=== PATIENT | female | born 2000 | race Caucasian/White ===

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

== ENCOUNTER → 2018-01-18 | Outpatient (CLI) | payer OTHER ==
--- NOTE | 2018-01-18 09:05 | MR ---
EXAMINATION TYPE: MR tspine/lspine wo con DATE OF EXAM: 01/18/2018 COMPARISON: Previous MRI of the lumbar spine dated 07/13/2013. HISTORY: Disc degeneration, lumbar/thoracic TECHNIQUE: Multiplanar, multisequence imaging of the lumbar spine is performed without IV contrast. FINDINGS: THORACIC SPINE: Paraspinal soft tissues are normal. Vertebral body height and alignment are maintained. No fractures are seen. There is no significant co mpressive discopathy. Intervertebral foramina are well maintained. IMPRESSION: NORMAL MRI OF THE THORACIC SPINE. LUMBAR SPINE: Paraspinal soft tissues are normal. 2 body height and alignment are maintained. There is no spondylolisthesis or spondylolysis. Cord signal is normal. The conus ends normally at the level of the L1-2 disc.. There is no significant compressive discopathy. Intervertebral foramina are well maintained. There is mild capsulitis in the facets at L4-5 and mild hypertrophic changes in the facets at L5-S1. IMPRESSION: 1. NO SIGNIFICANT COMPRESSIVE DISCOPATHY OR NEURAL COMPRESSION. 2. MILD FACET ARTHROPATHY, L4-5 AND L5-S1.
== END | disposition home or self-care (01) ==
LOC: RADMRIMAIN 07:42
PROVIDERS: ATTEND Family Medicine
DX: M46.87 Other specified inflammatory spondylopathies, lumbosacral region (principal)
CPT/HCPCS: 72146; 72148

== ENCOUNTER → 2018-03-28 | Outpatient (CLI) | payer OTHER ==
--- NOTE | 2018-03-29 11:04 | MR ---
EXAMINATION TYPE: MR wrist RT wo con DATE OF EXAM: 03/28/2018 COMPARISON: NONE HISTORY: D23.60 Benign neoplasm, skin of arm / Pain Standard multiplanar, multisequence MRI departmental protocol Multiplanar, multisequence images of the right wrist were acquired. Diffusion weighted imaging was pe rformed. FINDINGS: Osseous structures are homogeneous with normal bone marrow signal. No evidence for fracture or osseou s lesion. Adjacent to the distal radius at the palmar aspect are 2 small ganglion cysts measuring up to 4.1 mm and 1.2 mm respectively. No additional soft tissue lesions are identified. Triangular fibrocartilage complex is homogeneous and intact. Metacarpal Intraosseous ligaments are intact. Tendinous structures appear to be intact as well. IMPRESSION: 1. Ganglion cysts as noted.
== END | disposition home or self-care (01) ==
LOC: RADMRIMAIN 19:34
PROVIDERS: ATTEND Family Medicine
DX: M67.431 Ganglion, right wrist (principal); D23.60 Other benign neoplasm of skin of unspecified upper limb, including shoulder; M25.531 Pain in right wrist

== ENCOUNTER → 2018-06-13 | Outpatient (CLI) | payer OTHER ==
--- NOTE | 2018-06-13 23:12 | MR ---
EXAMINATION TYPE: MR knee LT wo con DATE OF EXAM: 06/13/2018 COMPARISON: None HISTORY: Ck knee pain x 3 months TECHNIQUE: Multiplanar, multisequence imaging of the left knee is performed without IV contrast. FINDINGS: The anterior and posterior cruciate ligaments are intact. There is small knee joint effusion. The med ial and lateral menisci appear normal. The collateral ligaments appear intact. There is subcutaneous edema over the lateral collateral ligament. There is no evidence of a fracture. I see no bony destruc tive process. Patella is intact. IMPRESSION: No evidence of meniscus or ligamentous tear. Small knee joint effusion. Subcutaneous edema over the lateral left knee.
--- NOTE | 2018-06-13 23:19 | MR ---
EXAMINATION TYPE: MR knee RT wo con DATE OF EXAM: 06/13/2018 COMPARISON: None HISTORY: Ck knee pain x 3 months TECHNIQUE: Multiplanar, multisequence imaging of the right knee is performed without IV contrast. FINDINGS: The anterior and posterior cruciate ligaments are intact. The medial and lateral menisci appear svetlana l. There is no evidence of meniscal tear. There is minute joint fluid. The collateral ligaments are i ntact. There is no evidence of a fracture. I see no bony destructive process. Patella appears intact. There is very minimal soft tissue edema lateral to the lateral collateral ligament. There is 7 mm po pliteal cyst. IMPRESSION: No evidence of ligament or meniscus tear. Small popliteal cyst. Minimal edema lateral to the lateral collateral ligament.
== END | disposition home or self-care (01) ==
LOC: RADMRIMAIN 17:50
PROVIDERS: ATTEND Family Medicine
DX: M71.21 Synovial cyst of popliteal space [Baker], right knee (principal); M25.462 Effusion, left knee; R60.0 Localized edema

== ENCOUNTER → 2018-07-22 | Outpatient (CLI) | payer OTHER ==
[2018-07-22 11:37] VITALS: BP 128/88; PULSE 78; RESP 16; TEMP 99.1; BMI 20.1
--- NOTE | 2018-07-22 12:37 | P.HPOB ---
History of Present Illness H&P Date: 07/22/18 Chief Complaint: Patients here for her routine gynecologic exam and for control. This is a 18-year-old with an LMP of 07/14/2018. She was previously on Xulane patches for control. She was supposed to start this again last week but her prescription ran out. She previously took control pills but frequently would forget the pills, therefore, she has been using the patch. She is without gynecologic complaints. Review of Systems The patient's weight has been stable over the last year. She denies respiratory , cardiac, or G.I. problems. 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 She has had to vaginal deliveries. History of Any Multi-Drug Resistant Organisms: None Reported Past Surgical History: No Surgical Hx Reported Past Anesthesia/Blood Transfusion Reactions: No Reported Reaction Past Psychological History: No Psychological Hx Reported Smoking Status: Never smoker Past Alcohol Use History: None Reported Past Drug Use History: None Reported Additional History: She is single but has been with her boyfriend since 2014 and lives with him. She does not work outside the home. - Past Family History Mother Family Medical History: Hypertension Additional Family Medical History / Comment(s): Grandmother had hypertension. Medications and Allergies Home Medications Medication Instructions Recorded Confirmed Type No Known Home Medications 08/16/16 07/22/18 History Allergies Allergy/AdvReac Type Severity Reaction Status Date / Time No Known Allergies Allergy Verified 12/03/17 04:49 Exam Vital Signs Temp Pulse Resp BP 07/22/18 11:31 99.1 F 78 16 128/88 Intake and Output 07/21/18 07/22/18 07/22/18 22:59 06:59 14:59 Other: Weight 54.885 kg Height 5'5", BMI 20.1. This is a well-developed well-nourished white female who is alert and oriented times 3 in no acute distress. HEENT: Within normal limits. NECK: Supple without mass or thyromegaly. CHEST AND LUNGS: Clear to auscultation. HEART: Regular rate and rhythm. BREASTS: Are without mass or discharge. AXILLARY EXAM: Negative for adenopathy. BACK: Negative for CVA tenderness. ABDOMEN: Soft, nontender, without palpable masses. PELVIC EXAM: Normal external genitalia. Cervix and vagina appear normal. There is no unusual discharge. There is no evidence of prolapse. The uterus is midposition, nongravid size and nontender. There are no palpable adnexal masses or tenderness. RECTAL EXAM: deferred EXTREMITIES: Nontender. IMPRESSION: 1. 26 year old female with normal gynecologic exam. 2. Requesting to be restarted on Xulane patches for control. Her prescription ran out last week. PLAN: 1. Pap smear will be deferred until age 19. 2. Self breast awareness was discussed with the patient. 3. GC and Chlamydia screening were obtained from the cervix. 4. We have had a long discussion regarding control and side effects related to hormonal control. We also discussed the possible risks including increased risk for blood clots. I feel she is a good candidate to restart her control patch. The prescription for Xulane patches will be sent electronically to [facility] in [place]. She is to start this on the 1st day of her next normal menstrual period. She will use it as directed. I have recommended the use of condoms or abstinence until she has restarted the control patch. 5. Return in one year and PRN.
== END | disposition home or self-care (01) ==
LOC: WWCWWP 10:46
PROVIDERS: ATTEND Obstetrics & Gynecology
DX: Z11.3 Encounter for screening for infections with a predominantly sexual mode of transmission (principal)
CPT/HCPCS: 87491; 87591

== ENCOUNTER → 2019-07-22 | Outpatient (CLI) | payer OTHER ==
[2019-07-22 10:03] VITALS: BP 120/80; PULSE 64; RESP 16; TEMP 98.5; BMI 18.8
--- NOTE | 2019-07-22 10:52 | P.HPOB ---
History of Present Illness H&P Date: 07/22/19 Chief Complaint: The patient is here for her routine well woman exam and for control. This is a 19 year old with an LMP of 07/21/2019. The patient is without gynecologic complaints. She states she has been doing very well with the Xulane patches for control. She is interested in permanent tubal sterilization. She states she is certain she is done having children. Review of Systems The patient has lost 7 pounds over the last year. She denies respiratory, cardiac, or G.I. problems. 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 She has had two vaginal deliveries. History of Any Multi-Drug Resistant Organisms: None Reported Past Surgical History: No Surgical Hx Reported Past Anesthesia/Blood Transfusion Reactions: No Reported Reaction Past Psychological History: No Psychological Hx Reported Smoking Status: Never smoker Past Alcohol Use History: None Reported Past Drug Use History: None Reported Additional History: She is single and has been with her boyfriend since 2014. She lives with him. 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 - Past Family History Mother Family Medical History: Hypertension Additional Family Medical History / Comment(s): Grandmother had hypertension. Medications and Allergies Home Medications Medication Instructions Recorded Confirmed Type Norelgestromin/Ethin.estradiol 1 patch TRANSDERM WEEKLY #9 patch 07/22/18 07/22/19 Rx [Xulane Patch] Allergies Allergy/AdvReac Type Severity Reaction Status Date / Time No Known Allergies Allergy Verified 07/22/19 10:04 Exam Vital Signs Temp Pulse Resp BP Pulse Ox 07/22/19 10:00 98.5 F 64 16 120/80 100 Intake and Output 07/21/19 07/22/19 07/22/19 22:59 06:59 14:59 Other: Weight 51.256 kg Height 5'5", weight 113 pounds, BMI 18.8. This is a well-developed well-nourished white female who is alert and oriented times 3 in no acute distress. HEENT: Within normal limits. NECK: Supple without mass or thyromegaly. CHEST AND LUNGS: Clear to auscultation. HEART: Regular rate and rhythm. BREASTS: Are without mass or discharge. AXILLARY EXAM: Negative for adenopathy. BACK: Negative for CVA tenderness. ABDOMEN: Soft, nontender, without palpable masses. PELVIC EXAM: deferred due to menstrual flow. The patient would like to return for the pelvic exam at a later date. EXTREMITIES: Nontender. IMPRESSION: 1. 19 year old female doing well on Xulane patches for control. 2. The patient is currently on her menstrual period. The pelvic examination was deferred for this reason. 3. Undesired fertility. The patient is requesting tubal sterilization. PLAN: 1. The patient will return for her pelvic examination with Pap smear and GC and Chlamydia testing on 08/04/2019. 2. Self breast awareness was discussed with the patient. 3. We had a long discussion regarding options for control including long- acting reversible contraception and tubal sterilization. We also discussed how the risk for sterilization regrets is greater prior to age 30. Information on tubal sterilization and long-acting reversible contraception such as IUD and the implant was given to the patient. These were given as the ACOG FAQ 035 and FAQ 184. When she returns for her pelvic examination we will again discussed this and consider referral to Dr. Grant, who delivered her 1st child, for possible tubal sterilization. 4. Continue on the control patch at this time. The prescription for the upcoming months will be sent to [facility] in [place]. When she returns for her pelvic examination, a prescription will be sent in for the rest of the year. 5. She will return on 08/04/2019 and then annually.
== END | disposition home or self-care (01) ==
LOC: WWCWWP 09:54
PROVIDERS: ATTEND Obstetrics & Gynecology
DX: Z53.9 Procedure and treatment not carried out, unspecified reason (principal)

== ENCOUNTER → 2019-08-04 | Outpatient (CLI) | payer OTHER ==
[2019-08-04 09:02] VITALS: BP 118/74; PULSE 67; RESP 16; TEMP 98.7; BMI 18.8
--- NOTE | 2019-08-04 09:42 | P.PN ---
Progress Note - Text Progress Note Date: 08/04/19 Chief Complaint: intermittent pelvic cramping over the last year. HPI:This is a 19-year-old with an LMP of 07/22/2019. The patient is complaining of intermittent pelvic cramping that can occur any time. She states she has noticed this over the past 1 to 2 years after her 2nd child. She does have worsening cramping after sexual intercourse. However, she states the cramping can occur any time and is frequently not associated with sexual intercourse or menstrual periods. It can last up to an hour when she experiences the cramping. It is not on any particular side. She was checked for a urinary tract infection by her primary care doctor and this was negative for the patient. She had the cramping yesterday and rated it at a 2 out of 10. At its worst, it can be up to 4 or 5 out of 10. Currently the patient is at 0 out of 10. She has had less sexual desire and thinks it may be in part due to the cramping. She has also returned here today to complete her pelvic examination which was not done at the time of her well woman exam on 07/22/2019 because of her menstrual flow at that time. ROS: she denies respiratory, cardiac, or G.I. problems. PE: Blood pressure: 119/74, Height: 5'5", Weight: 113 pounds, Temperature: 98.7, Pulse: 67. Pulse oximeter 94%. This is a well developed, well nourished, white female who is alert and orientedx3, in no acute distress. Abdomen: soft nontender without palpable masses. Pelvic examination: normal external genitalia. Cervix appears multiparous without lesions. Vagina appears normal without unusual discharge. The cervix is slightly friable upon doing the Pap smear. There is no cervical motion tenderness. The uterus is an introverted, nongravid size, and nontender. There are no palpable adnexal masses or tenderness. Rectal examination was deferred. Impression: 1. 19-year-old female with intermittent pelvic cramping without any significant physical findings at this time. Differential diagnosis will include ovarian cyst, uterine cramping possibly related to prostaglandins and her partner's semen, G.I. cramping, mild pelvic infection, and bladder spasms. 2. Dyspareunia consisting of cramping associated with sexual intercourse. Plan: 1. Pap smear was performed. 2. GC and Chlamydia testing was obtained from the cervix. 3. The patient will be scheduled for a pelvic ultrasound. The orders that was given to the patient for this. 4. Continue Xulane -control patches. The electronic prescription will be sent to [facility] in [place]. 5. We have discussed other options for control including the IUD and tubal sterilization, which she had previously requested. She states she has not read the information on these methods of control yet. 6. She will try to determine if her cramping is associated with any particular activity or condition. 7. She will also return in one year for her annual exam and PRN. Time spent with the patient: 20 minutes
[2019-08-06 07:22] LABS: C. trachomatis,PCR Negative (Neg,Equiv); Chlamydia trachomatis Source Cervix; N. gonorrhoeae,PCR Negative (Neg,Equiv); Neisseria Source Cervix
== END | disposition home or self-care (01) ==
LOC: WWCWWP 08:50
PROVIDERS: ATTEND Obstetrics & Gynecology
DX: N94.10 Unspecified dyspareunia (principal); R10.2 Pelvic and perineal pain; Z11.3 Encounter for screening for infections with a predominantly sexual mode of transmission
CPT/HCPCS: 87491; 87591

== ENCOUNTER → 2019-08-14 | Outpatient (CLI) | payer OTHER ==
--- NOTE | 2019-08-15 10:15 | US ---
EXAMINATION TYPE: US pelvis complete transvag DATE OF EXAM: 08/14/2019 COMPARISON: NONE CLINICAL HISTORY: R10.2 PELVIC PAIN,N94.1 DYSPAREUNIA. Pt states cramping during intercourse TECHNIQUE: Transvaginal (TV) and Transabdominal (TA) . Transabdominal sonographic images of the pel vis were acquired. Transvaginal sonographic images were medically necessary to better assess the fol lowing anatomy: Left Ovary Date of LMP: 07/22/2020 EXAM MEASUREMENTS: Uterus: 8.6 x 4.3 x 5.5 cm Endometrial Stripe: 0.5 cm Right Ovary: 2.3 x 1.7 x 2.7 cm Left Ovary: 2.5 x 1.9 x 1.8 cm 1. Uterus: Anteverted wnl 2. Endometrium: wnl 3. Right Ovary: wnl 4. Left Ovary: wnl 5. Bilateral Adnexa: wnl 6. Posterior cul-de-sac: wnl IMPRESSION: Unremarkable study.
== END | disposition home or self-care (01) ==
LOC: RADUSWWP 16:07
PROVIDERS: ATTEND Obstetrics & Gynecology
DX: N94.10 Unspecified dyspareunia (principal); R10.2 Pelvic and perineal pain
CPT/HCPCS: 76830; 76856

== ENCOUNTER → 2019-10-26 | Outpatient (CLI) | payer OTHER ==
[2019-10-26 10:19] LABS: Basophils % (A) 1 %; Eosinophils # (A) 0.1 k/uL (0-0.7); Eosinophils % (A) 2 %; HCT 40.4 % (34.0-46.0); HGB 14.1 gm/dL (11.4-16.0); Lymphocytes # (A) 1.8 k/uL (1.0-4.8); Lymphocytes % (A) 39 %; MCH 28.3 pg (25.0-35.0); MCHC 34.8 g/dL (31.0-37.0); MCV 81.3 fL (80.0-100.0); Mean Platelet Volume 5.5; Monocytes # (A) 0.4 k/uL (0-1.0); Monocytes % (A) 8 %; Neutrophils # (A) 2.2 k/uL (1.3-7.7); Neutrophils % (A) 49 %; Platelet Count 292 k/uL (150-450); RBC 4.97 m/uL (3.80-5.40); RDW 13.2 % (11.5-15.5); WBC 4.5 k/uL (3.8-10.6)
== END | disposition home or self-care (01) ==
LOC: LABPAT 08:57
PROVIDERS: ATTEND Obstetrics & Gynecology
DX: Z01.812 Encounter for preprocedural laboratory examination (principal); N94.6 Dysmenorrhea, unspecified; N94.10 Unspecified dyspareunia
CPT/HCPCS: 36415; 85025

== ENCOUNTER 2019-11-09 08:44 | Day surgery (SDC) | payer OTHER ==
[2019-11-05 12:29] VITALS: BMI 18.1
[~2019-11-09 08:44] MED LIST: DEXAMETHASONE SOD PHOSPHATE 10 MG/ML 1 ML VIAL IV ONE; HYDROmorphone 0.5 MG/0.5 ML SYRINGE IVP PRN; LACTATED RINGERS 1,000 ML IV SCH; LIDOCAINE 1% 20 ML VIAL (10MG/ML) FOR IV START INTRADERMA PRN; ONDANSETRON 4 MG/2 ML VIAL IVP ONE; Pre Op ABX Message 1 EACH MISC MISCELLANE ONE; SCOPOLAMINE 1.5MG/72HR PATCH TRANSDERM ONE
[2019-11-09] MEDS ORDERED: ROCURONIUM BROMIDE 10 MG/ML 10 ML VIAL IV ONE (10:14)
[2019-11-09] MEDS ORDERED: SUCCINYLCHOLINE CHLORIDE 100 MG/5 ML SYR IV ONE (10:14)
[2019-11-09] MEDS ORDERED: MIDAZOLAM 2 MG/2 ML VIAL ONE (10:14)
[2019-11-09] MEDS ORDERED: NEOSTIGMINE 1 MG/ML 10 ML VIAL ONE (10:14)
[2019-11-09] MEDS ORDERED: KETOROLAC 30 MG/ML 1 ML VIAL ONE (10:14)
[2019-11-09] MEDS ORDERED: fentaNYL (PF) 50 MCG/ML 2 ML AMP ONE (10:14)
[2019-11-09] MEDS ORDERED: PROPOFOL 10 MG/ML 20 ML VIAL IV ONE (10:14)
[2019-11-09] MEDS ORDERED: GLYCOPYRROLATE 0.2 MG/ML 2 ML VIAL ONE (10:14)
[2019-11-09] MEDS ORDERED: LIDOCAINE 1% INJ 10MG/ML (20 ML MDV) ONE (10:14)
[2019-11-09] MEDS ORDERED: BUPIVACAINE (PF) 0.25% 30 ML VIAL SQ ONE ×2 (10:47→10:55)
[2019-11-09] MEDS ORDERED: LACTATED RINGERS 1,000 ML IV ONE ×3 (10:47)
--- NOTE | 2019-11-09 11:05 | P.OP ---
Date of Procedure: 11/09/19 Preoperative Diagnosis: Dysmenorrhea, dyspareunia. Postoperative Diagnosis: Essentially normal-appearing female pelvis Procedure(s) Performed: Diagnostic laparoscopy Anesthesia: WALLY Surgeon: Alivia Grant Estimated Blood Loss (ml): 5 IV fluids (ml): 800 Urine output (ml): 200 Pathology: none sent Condition: stable Disposition: PACU Operative Findings: Normal-appearing tubes, ovaries, anterior posterior cul-de-sacs, bilateral si dewalls, uterine surface, appendix. Description of Procedure: Patient is brought to the operating suite where a general anesthetic is administered. She's placed in the dorsal lithotomy position. The appropriate timeout is performed to assure proper patient and procedural identification. Urine hCG is negative. Antibiotics are not deemed appropriate. The cervix, vagina, perineal bodies and abdomen are all prepped and draped in usual sterile fashion. The bladder is drained for 200 mL of clear yellow urine. Examination under anesthesia reveals a small, mobile, anteverted uterus, negative adnexa bilaterally. Speculum was placed into the vagina and the anterior lip of the cervix is grasped with an Allis clamp. The small acorn is placed and attached to the Allis, blood speculum is removed. Attention is then drawn to the abdominal cavity. A small infraumbilical incision is made. The varies needle is placed and placement is checked with hanging drop technique. The abdomen is insufflated under low filling pressures for approximately 3.5 L of CO2 gas. Pressures remaining below 14 mmHg. Varies needle is removed. The trochar is placed under direct visualization. Placement is atraumatic. Patient is then placed in Trendelenburg position. A second incision is made suprapubically in the midline, and a 5 mm trocar is placed again under direct visualization, atraumatic entry. A probe is placed in the suprapubic port. Careful inspection of the uterine surface, bilateral sidewalls, bilateral tubes to the fimbriated end, and ovaries is performed. The anterior posterior cul-de-sacs are also visualized, as is the appendix to its tip. There is no evidence of pelvic adhesions, no evidence of pelvic endometriosis, no abnormal findings on careful inspection. When this is completed, the CO2 gas was allowed to diffuse and the trochars are again removed under direct visualization for documentation of atraumatic fascial entries. 4-0 undyed Monocryl is used in a subcutaneous fashion to close both small incisions. They are dressed after being injected with quarter percent Marcaine without epinephrine. Toradol is given prior to leaving the operative suite. All sponge needle and enhancement counts are correct at the end of our procedure. Patient is brought back to the recovery room in very good condition with stable vital signs including blood pressure 124/72, pulse 69, 100% O2 saturation. Patient will follow-up with me in the office in 2 weeks.
[2019-11-09 11:09] VITALS: TEMP 96.9
[2019-11-09 11:52] VITALS: RESP 16
[2019-11-09 12:45] VITALS: BP 122/79; PULSE 54
== END 2019-11-09 12:43 | disposition home or self-care (01) ==
LOC: OR 08:44
PROVIDERS: ATTEND Obstetrics & Gynecology
DX: N94.10 Unspecified dyspareunia (principal); N94.6 Dysmenorrhea, unspecified; F41.9 Anxiety disorder, unspecified; J45.909 Unspecified asthma, uncomplicated; F32.9 Major depressive disorder, single episode, unspecified; Z83.3 Family history of diabetes mellitus; Z83.42 Family history of familial hypercholesterolemia; Z79.899 Other long term (current) drug therapy; Z79.3 Long term (current) use of hormonal contraceptives
CPT/HCPCS: 81025; 49320; J2250; J1100; J2710; J2405; J2001; J3010; J1885; J0330; J2704

== ENCOUNTER 2020-10-31 05:55 | Inpatient (IN) | payer OTHER ==
[2020-10-31] MEDS ORDERED: METHYLERGONOVINE 0.2 MG/ML 1 ML AMP IM PRN (06:12)
[2020-10-31] MEDS ORDERED: CARBOPROST TROMETHAMINE 250 MCG/ML 1 ML AMP IM PRN (06:12)
[2020-10-31] MEDS ORDERED: OXYTOCIN 10 UNIT/ML 1 ML VIAL IM PRN (06:12)
[2020-10-31] MEDS ORDERED: TERBUTALINE 1 MG/ML VIAL SQ PRN (06:12)
[2020-10-31] MEDS ORDERED: LIDOCAINE 0.5% (PF) 5 MG/ML (50 ML SDV) SQ PRN (06:12)
[2020-10-31] MEDS ORDERED: PENICILLIN G POTASSIUM 5,000,000 UNIT in DEXTROSE 5% IN WATER 100 ML IVPB STA ×2 (06:12)
[2020-10-31] MEDS ORDERED: OXYTOCIN 30 UNITS/500 ML NS 30 UNIT in SALINE 1 500ML.BAG IV SCH (06:15)
[2020-10-31 06:26] LABS: Basophils # (A) 0.1 k/uL (0-0.2); Basophils % (A) 1 %; Eosinophils # (A) 0.1 k/uL (0-0.7); Eosinophils % (A) 1 %; HCT 33.6 % (34.0-46.0); HGB 11.1 gm/dL (11.4-16.0); Hypochromasia Moderate; Lymphocytes # (A) 1.9 k/uL (1.0-4.8); Lymphocytes % (A) 25 %; MCH 22.6 pg (25.0-35.0); MCHC 32.9 g/dL (31.0-37.0); MCV 68.6 fL (80.0-100.0); Mean Platelet Volume 6.7; Microcytosis Moderate; Monocytes # (A) 0.4 k/uL (0-1.0); Monocytes % (A) 6 %; Neutrophils % (A) 66 %; Platelet Count 239 k/uL (150-450); Poikilocytosis Moderate; RBC 4.89 m/uL (3.80-5.40); RDW 14.2 % (11.5-15.5); WBC 7.6 k/uL (3.8-10.6)
[2020-10-31] MEDS: LACTATED RINGERS 1,000 ML IV SCH ×2 (07:05→15:31)
--- NOTE | 2020-10-31 08:40 | P.HPOB ---
History of Present Illness H&P Date: 10/31/20 Chief Complaint: Here for elective induction of labor with favorable multiparous cervix This is a 20-year-old white female 3 para 2002 EDC 11/07/2020 at 39 weeks gestation. Patient presents today for induction. She has spontaneous mild contractions upon admission. She denies fluid leakage or vaginal bleeding. Obstetric history significant for positive group B strep cultures. Blood type O positive, rubella status immune. Urine culture, hepatitis B surface antigen, HIV testing, gonorrhea and chlamydia cultures all negative. One-hour Glucola 136. VDRL testing negative TPA. Past medical history significant for asthma, anxiety and depression, dyspareunia, dysmenorrhea. Past surgical history diagnostic laparoscopy 2019, wisdom teeth extracted. ALLERGIES none known. Family history significant for hypertension diabetes and mental impairment. Social history patient is single, father of the baby is involved. She denies alcohol tobacco or drug use. On exam patient is 5 foot 4 inches, 125 pounds, blood pressure 118/63. The general physical exam is normal limits. Cervix is 6 cm dilated, 80% effaced, -1 station, vertex presentation. Artificial amniorrhexis reveals clear fluid with vernix. heart rate is in the 140s with frequent accelerations consistent with reactive NST. Impression: 39 week intrauterine , here for elective induction of labor, in early spontaneous labor, all signs reassuring, positive group B strep cultures noted. Plan: Penicillin G per hospital protocol. Oxytocin as needed. Analgesic options reviewed with the patient. Continue close maternal and surveillance. Anticipate normal spontaneous vaginal delivery. Review of Systems Constitutional: Reports as per HPI Past Medical History Past Medical History: Asthma Additional Past Medical History / Comment(s): PAST LAY MIDWIFE HISTORY: She has no h istory of STDs. She has had two vaginal deliveries. History of Any Multi-Drug Resistant Organisms: None Reported Past Surgical History: No Surgical Hx Reported Additional Past Surgical History / Comment(s): Laparoscopy Past Anesthesia/Blood Transfusion Reactions: No Reported Reaction Past Psychological History: No Psychological Hx Reported Smoking Status: Never smoker Past Alcohol Use History: None Reported Past Drug Use History: None Reported - Past Family History Mother Family Medical History: Hypertension Additional Family Medical History / Comment(s): Grandmother had hypertension. Medications and Allergies Home Medications Medication Instructions Recorded Confirmed Type No Known Home Medications 10/31/20 10/31/20 History Allergies Allergy/AdvReac Type Severity Reaction Status Date / Time No Known Allergies Allergy Verified 10/31/20 06:12 Exam Vital Signs Temp Pulse Resp BP Pulse Ox 10/31/20 06:11 97.3 F L 66 16 118/63 100 Intake and Output 10/30/20 10/31/20 10/31/20 22:59 06:59 14:59 Other: Weight 56.699 kg See dictation under HPI please Results Result Diagrams: 10/31/20 06:20 Abnormal Lab Results - Last 24 Hours (Table) 10/31/20 Range/Units 06:20 Hgb 11.1 L (11.4-16.0) gm/dL Hct 33.6 L (34.0-46.0) % MCV 68.6 L (80.0-100.0) fL MCH 22.6 L (25.0-35.0) pg Assessment and Plan Assessment: 39 week intrauterine , early spontaneous labor. Positive group B strep cultures, first dose of penicillin G received. Plan: Continue close maternal and surveillance. Analgesic options reviewed with the patient. Anticipate normal spontaneous vaginal delivery. Time with Patient: Less than 30
[2020-10-31] MEDS ORDERED: diphenhydrAMINE 50 MG CAP PO PRN (09:42)
[2020-10-31] MEDS ORDERED: HYDROCORTISONE 2.5% RECTAL CREAM 30 GM TUBE RECTAL PRN (09:42)
[2020-10-31] MEDS ORDERED: ACETAMINOPHEN TAB 325 MG TAB PO PRN (09:42)
[2020-10-31] MEDS ORDERED: diphenhydrAMINE 25 MG CAP PO PRN (09:42)
[2020-10-31] MEDS ORDERED: diphenhydrAMINE 50 MG/ML 1 ML VIAL IVP PRN ×2 (09:42)
[2020-10-31] MEDS ORDERED: SIMETHICONE 80 MG CHEWABLE PO PRN (09:42)
[2020-10-31] MEDS ORDERED: ZOLPIDEM 5 MG TAB PO PRN (09:42)
[2020-10-31] MEDS ORDERED: IBUPROFEN 600 MG TAB PO PRN (09:42)
[2020-10-31] MEDS ORDERED: LANOLIN CREAM 5 GM TUBE TOPICAL PRN (09:42)
[2020-10-31] MEDS ORDERED: BENZOCAINE/MENTHOL SPRAY 1 GM/SPRAY AEROSOL TOPICAL PRN (09:42)
--- NOTE | 2020-10-31 09:42 | P.PROBDLV ---
Vaginal Delivery Note - . Vaginal Delivery Note: This is a 20-year-old white female 3 para 2001 EDC 11/07/2020 at 39 weeks gestation. Patient was scheduled for induction with favorable cervix, on admission she was having spontaneous uterine contractions. remarkable for rubella status nonimmune, positive group B strep cultures, blood type O positive. Please see dictated history and physical for details. Artificial amniorrhexis revealed clear fluid. Analgesic options were discussed and declined. Patient rapidly progressed to the first stage of labor was judged to be completely dilated at 0936 hours. The perineal body was prepped and draped in usual sterile fashion. With excellent maternal expulsive efforts the head delivered occiput anterior and restituted accordingly. There was a nuchal cord 2 that was reduced on the perineal body. Patient was officially delivered of a liveborn female infant at 0939 hours. Umbilical cord was doubly clamped and ligated, she was handed to waiting nurses for evaluation where scores of 9 and 9 at one and 5 minutes respectively were given. Placenta delivered spontaneously was inspected and noted to be intact with trivascular cord at 0944 hours. This time the perineal body was redraped. Inspection of the cervix, vagina, perineum, periurethral, and perirectal areas revealed no lacerations and no defects. Fundus is firm and in the midline, symmetric and 18 week size completion of delivery. All sponge needle and enhancement counts are correct. Patient is allowed to begin the bonding experience in the LDR.
[2020-10-31] MEDS ORDERED: OXYTOCIN 20 UNITS/1000 ML NS 1,000 ML IV SCH (09:45)
[2020-10-31] MEDS ORDERED: PENICILLIN G POTASSIUM 2,500,000 UNIT in DEXTROSE 5% IN WATER 100 ML IVPB SCH ×2 (11:00)
[2020-10-31] MEDS ORDERED: SENNOSIDES-DOCUSATE SODIUM 1 EACH TAB PO SCH (20:00)
[2020-11-01 06:43] LABS: Basophils % (A) 0 %; Eosinophils # (A) 0.1 k/uL (0-0.7); Eosinophils % (A) 1 %; HCT 31.6 % (34.0-46.0); HGB 9.9 gm/dL (11.4-16.0); Hypochromasia Marked; Lymphocytes # (A) 1.9 k/uL (1.0-4.8); Lymphocytes % (A) 22 %; MCH 21.7 pg (25.0-35.0); MCHC 31.2 g/dL (31.0-37.0); MCV 69.5 fL (80.0-100.0); Mean Platelet Volume 6.7; Microcytosis Moderate; Monocytes # (A) 0.4 k/uL (0-1.0); Monocytes % (A) 5 %; Neutrophils # (A) 6.2 k/uL (1.3-7.7); Neutrophils % (A) 71 %; Platelet Count 238 k/uL (150-450); Poikilocytosis Moderate; RBC 4.54 m/uL (3.80-5.40); RDW 14.1 % (11.5-15.5); WBC 8.8 k/uL (3.8-10.6)
--- NOTE | 2020-11-01 06:48 | P.DS ---
Providers Date of admission: 10/31/20 05:55 Expected date of discharge: 11/01/20 Attending physician: Alivia Grant Primary care physician: Stated None Hospital Course: This is a 20-year-old white female 3 para 2001 EDC 11/07/2039 weeks gestation. Patient presented for induction with favorable multiparous cervix. remarkable for rubella status nonimmune. Blood type O positive. [place] strep cultures positive. Please see dictated history and physical for details. Artificial amniorrhexis revealed clear fluid. Patient went on to swiftly deliver vaginally a liveborn female with scores of 9 and 9 at one and 5 minutes respectively. weighed 2965 g or 6 pounds 8.6 ounces. There was a nuchal cord 2 that was reduced, estimated blood loss 250 mL, no perineal lacerations. Please see dictated delivery note for details. This morning the patient is doing well. She is voiding, ambulate in, passing flatus without difficulty. Vital signs are stable and she is afebrile. Fundus is firm and in the midline, symmetric and 18 week size. Extremities are negative for edema. Chest is clear in all paredes. Patient is judged to be in very good condition for discharge home. She will follow-up with me in the office in 6 weeks. I have reminded her no intercourse, tampons or douching. She will use [id number] Advil or Aleve, or Motrin as needed for pain. She is to call with any fevers shakes or chills, foul smelling or copious lochia, with the passage of large blood clots, with any pain not alleviated by [id number] products, or indeed with any concerns. Assessment: Doing well day #1 Patient Condition at Discharge: Good Plan - Discharge Summary Discharge Rx Participant: No New Discharge Prescriptions: No Action No Known Home Medications Discharge Medication List No Known Home Medications 10/31/20 [History] Follow up Appointment(s)/Referral(s): Alivia Grant MD [STAFF PHYSICIAN] - 6 Weeks Discharge Disposition: HOME SELF-CARE
[2020-11-01 10:45] VITALS: PULSE 60; RESP 15
[2020-11-01 17:07] VITALS: BP 101/58; TEMP 98
== END 2020-11-01 16:45 | disposition home or self-care (01) | DRG 807 ==
LOC: 4FBP 05:55
PROVIDERS: ADMIT Obstetrics & Gynecology; ATTEND Obstetrics & Gynecology
DX: O69.81X0 Labor and delivery complicated by cord around neck, without compression, not applicable or unspecified (principal); O99.824 Streptococcus B carrier state complicating childbirth; Z37.0 Single live birth; Z3A.39 39 weeks gestation of pregnancy; Z87.09 Personal history of other diseases of the respiratory system; Z86.59 Personal history of other mental and behavioral disorders; Z82.49 Family history of ischemic heart disease and other diseases of the circulatory system; Z83.3 Family history of diabetes mellitus; Z81.8 Family history of other mental and behavioral disorders
CPT/HCPCS: 85025; 86850; 86870; 86880; 86886; 86900; 86901

== ENCOUNTER → 2021-01-12 | Outpatient (CLI) | payer OTHER ==
[2021-01-12 12:39] LABS: Anisocytosis Slight; Basophils % (A) 1 %; Eosinophils % (A) 1 %; HCT 41.3 % (34.0-46.0); HGB 13.2 gm/dL (11.4-16.0); Hypochromasia Slight; Lymphocytes # (A) 2.7 k/uL (1.0-4.8); Lymphocytes % (A) 44 %; MCH 23.5 pg (25.0-35.0); MCHC 31.9 g/dL (31.0-37.0); MCV 73.8 fL (80.0-100.0); Mean Platelet Volume 6.7; Microcytosis Moderate; Monocytes # (A) 0.5 k/uL (0-1.0); Monocytes % (A) 8 %; Neutrophils # (A) 2.8 k/uL (1.3-7.7); Neutrophils % (A) 45 %; Platelet Count 229 k/uL (150-450); Poikilocytosis Slight; RBC 5.59 m/uL (3.80-5.40); RDW 18.4 % (11.5-15.5); WBC 6.2 k/uL (3.8-10.6)
== END | disposition home or self-care (01) ==
LOC: LABPAT 11:48
PROVIDERS: ATTEND Obstetrics & Gynecology
DX: Z01.818 Encounter for other preprocedural examination (principal)
CPT/HCPCS: 36415; 85025

== ENCOUNTER 2021-01-16 08:39 | Day surgery (SDC) | payer OTHER ==
[2021-01-11 13:08] VITALS: BMI 18.4
--- NOTE | 2021-01-12 14:45 | HP ---
HISTORY AND PHYSICAL PREOPERATIVE HISTORY AND PHYSICAL DATE OF SURGERY: 01/16/2021 This is a 20-year-old white female, 3, para 3-0-0-3 who presents again for permanent tubal sterilization utilizing Filshie clips. She too is aware of all of the other options of contraception, including vasectomy. She understands the low but possible failure rate of this procedure, including the risk of intrauterine versus ectopic . PAST MEDICAL HISTORY: Significant for anxiety and depression, asthma, dysmenorrhea and dyspareunia. PAST SURGICAL HISTORY: Diagnostic laparoscopy 2019, wisdom teeth extracted in the past. CURRENT MEDICATIONS: Rectal cream as needed for hemorrhoid use. ALLERGIES: None known. FAMILY HISTORY: Significant for hypertension, diabetes, hypercholesterolemia and mental impairment. REPRODUCTIVE HISTORY: Normal spontaneous vaginal deliveries x3, healthy infants. SOCIAL HISTORY: Patient denies alcohol, illicit substance abuse or any drug use. She is single. 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 PHYSICAL EXAMINATION: The patient is 5 feet 4 inches, 110 pounds, pulse 67, blood pressure 110/72. HEENT exam reveals good dentition, no obvious thyromegaly, no adenopathy. Chest is clear to auscultation in all paredes anteriorly and posteriorly. Cardiac exam reveals a regular rate and rhythm with no murmur, click, or rub. Abdomen is soft, nontender, active bowel sounds, no organosplenomegaly. Breasts are bilaterally symmetrical with no skin dimpling, discharge, or adenopathy. External genitalia are well estrogenized, cervix is multiparous and a PAP smear is up to date. Uterus is small, anteverted, anteflexed, mobile, smooth, and nontender. Adnexa are negative bilaterally with no tenderness or masses. Rectal exam reveals FIT negative stool, good sphincter tone, no defects or hemorrhoids. Neurologic exam: Patient is oriented x3, normal mood and affect. IMPRESSION: The patient requesting permanent tubal sterilization utilizing Filshie clips, aware of all other options of contraception and aware of failure rate. PLAN: We will proceed with laparoscopic tubal ligation with Filshie clips. We reviewed the risks of anesthesia to include aspiration, nerve damage, or even . We reviewed the risk of bleeding, infection, perforation or damage to bowel, bladder, ureters, blood vessels or indeed any pelvic or abdominal organs. All questions answered. MMODL / IJN: [id number] /
[~2021-01-16 08:39] MED LIST changes: -DEXAMETHASONE SOD PHOSPHATE 10 MG/ML 1 ML VIAL IV ONE; +DEXAMETHASONE SOD PHOSPHATE 4 MG/ML 1 ML VIAL IV ONE; -HYDROmorphone 0.5 MG/0.5 ML SYRINGE IVP PRN; +LIDOCAINE 1% (10MG/ML) FOR IV START INTRADERMA PRN; -LIDOCAINE 1% 20 ML VIAL (10MG/ML) FOR IV START INTRADERMA PRN
[2021-01-16] MEDS ORDERED: LACTATED RINGERS 1,000 ML IV ONE ×2 (08:51)
[2021-01-16] MEDS ORDERED: SUCCINYLCHOLINE CHLORIDE 100 MG/5 ML SYR IV ONE (10:57)
[2021-01-16] MEDS ORDERED: MIDAZOLAM 2 MG/2 ML VIAL ONE (10:57)
[2021-01-16] MEDS ORDERED: KETOROLAC 15 MG/ML 1 ML VIAL ONE (10:57)
[2021-01-16] MEDS ORDERED: PROPOFOL 10 MG/ML 20 ML VIAL IV ONE (10:57)
[2021-01-16] MEDS ORDERED: LIDOCAINE 1% INJ 10MG/ML (20 ML MDV) ONE (10:57)
[2021-01-16] MEDS ORDERED: fentaNYL (PF) 50 MCG/ML 2 ML AMP ONE (10:57)
[2021-01-16] MEDS ORDERED: BUPIVACAINE (PF) 0.25% 30 ML VIAL SQ ONE ×2 (11:21→11:28)
[2021-01-16] MEDS ORDERED: SILVER NITRATE APPLICATOR 1 EACH STICK..EA. TOPICAL ONE (11:32)
--- NOTE | 2021-01-16 11:54 | P.OP ---
Date of Procedure: 01/16/21 Preoperative Diagnosis: Undesired fertility Postoperative Diagnosis: Same, normal-appearing female pelvis Procedure(s) Performed: Laparoscopic tubal ligation with Filshie clips Surgeon: Alivia Grant Estimated Blood Loss (ml): 25 IV fluids (ml): 600 Urine output (ml): 200 Pathology: none sent Condition: stable Disposition: PACU Operative Findings: Normal-appearing tubes and ovaries, uterus, sidewalls, and pelvis. Description of Procedure: Patient is brought to the [facility] and suite where general anesthetic is administered. She's placed in the dorsal lithotomy position. The cervix, vagina, perineum, and abdomen are all prepped and draped in usual sterile fashion. The appropriate timeout is performed to assure proper patient and procedural identification. Urine hCG is negative. The speculum was placed into the vagina and the anterior lip of the cervix is grasped with a double-tooth tenaculum. [place] cannula is placed onto the cervix and attached to the tenaculum. Speculum is removed. Attention is now drawn to the abdomen. A small infraumbilical incision is made and carried down through the previous scar. The perineal needle is placed and the placement is checked with hanging drop technique. Abdomen is distended and insufflated to a total of 2.5 L of CO2 gas. Veress needle was removed. Trochars placed and placement is noted to be atraumatic. A second incision is made suprapubically and under direct vi sualization the second trocar is placed. Patient is now put in Trendelenburg position. The right fallopian tube is visualized in its entirety to the fimbriated end. A Filshie clip is placed in the isthmic portion of the tube with care to traverse the entire diameter of the tube into the mesal salpinx. The same procedure is carried out contralaterally, again the fimbriated end of the tube is visualized for proper placement and clip is placed through the entire isthmic portion of the tube into the mesal salpinx. During the course of the procedure the case became hypotensive, this was managed by the anesthesia team with atropine. Please see separate notes. Bilateral ovaries appear normal. Uterine serosa is clear. Pelvic sidewalls are negative, no evidence of endometriosis or adhesions. The CO2 gas was allowed to diffuse. The trochars are removed and the fascial defects are inspected and noted to be clean and dry. 4-0 undyed Monocryl is used for final skin closure. Steri-Strips and Mastisol are applied to the wounds. Instrumentation is removed from the cervix, nitrous stick's are used on a small defect from the tenaculum with excellent hemostasis. All sponge needle and enhancement counts are correct at the end of the procedure. Patient is brought back to the recovery room in very good condition with stable vital signs including a blood pressure of 132/59, pulse 103, 100% O2 saturation. Toradol is given prior to leaving the operative suite. Patient will follow-up with me in the office in 2 weeks.
[2021-01-16 11:55] VITALS: TEMP 97.9
[2021-01-16 12:03] VITALS: RESP 16
[2021-01-16] MEDS: HYDROmorphone 0.5 MG/0.5 ML SYRINGE IVP PRN ×2 (12:05→12:17)
[2021-01-16] MEDS ORDERED: HYDROcodone/APAP 5-325MG 1 EACH TAB ONE (12:53)
[2021-01-16] MEDS ORDERED: HYDROcodone/APAP 5-325MG 1 EACH TAB PO ONE (12:57)
[2021-01-16 13:11] VITALS: BP 118/74; PULSE 90
== END 2021-01-16 13:30 | disposition home or self-care (01) ==
LOC: OR 08:39
PROVIDERS: ATTEND Obstetrics & Gynecology
DX: Z30.2 Encounter for sterilization (principal); F41.9 Anxiety disorder, unspecified; F32.9 Major depressive disorder, single episode, unspecified; J45.909 Unspecified asthma, uncomplicated; N94.6 Dysmenorrhea, unspecified; N94.10 Unspecified dyspareunia; Z98.890 Other specified postprocedural states; K64.9 Unspecified hemorrhoids; Z81.1 Family history of alcohol abuse and dependence; Z83.3 Family history of diabetes mellitus; Z83.42 Family history of familial hypercholesterolemia; Z81.8 Family history of other mental and behavioral disorders
CPT/HCPCS: 81025; 58671; J2250; J1100; J2405; J2001; J3010; J1885; J0330; J2704; J1170

== ENCOUNTER → 2022-05-30 | Outpatient (CLI) | payer OTHER ==
--- NOTE | 2022-05-31 06:36 | FL ---
EXAMINATION TYPE: FL hysterosalpingography DATE OF EXAM: 05/30/2022 CLINICAL HISTORY: History of tubal ligation procedure last year with possible displaced clip. Recent abnormal x-ray. TECHNIQUE: Fluoroscopic assisted hysterosalpingogram. COMPARISON: None. FINDINGS: Fluoroscopic guidance was provided during hysterosalpingogram procedure performed by linnea jacobo A total of 1 minute 48 seconds of fluoroscopic time was utilized during the procedure and 8 spot images are acquired. Procedure was explained to the patient. Benefits, alternatives, and risks were discussed. An informed consent was then obtained. Preprocedure bar supervisor image shows 2 right pelvic tubal ligation clips. Incidental note made of transitio nal vertebra lumbosacral junction. Pelvic exam was performed using sterile technique as the speculum was inserted. The cervical os is cl eansed with Betadine. Catheter is inserted and balloon is inflated. Approximately 10 cc of Isovue-370 is injected into the uterus. There is some flow bilaterally along the tubes with left tube filling l ater and being mildly dilated. Opacified portion of right tube is longer in length. There is no free spillage of contrast in the pelvis bilaterally to suggest persistent tube patency. At this point ball oon is deflated and catheter is withdrawn. Speculum was removed. Patient tolerated procedure well without any immediate complication. Patient discharged home from the department in stable and satisfactory condition. IMPRESSION: As Above.
== END | disposition home or self-care (01) ==
LOC: RADUSWWP 13:11
PROVIDERS: ATTEND Obstetrics & Gynecology
DX: Z98.51 Tubal ligation status (principal)
CPT/HCPCS: 58340; 74740; Q9967

== ENCOUNTER → 2025-04-30 | Outpatient (CLI) | payer OTHER ==
[2025-04-30 15:16] LABS: Basophils # (A) 0.04 X 10*3/uL (0.00-0.10); Basophils % (A) 0.8 %; Eosinophils # (A) 0.07 X 10*3/uL (0.04-0.35); Eosinophils % (A) 1.4 %; HCT 42.4 % (37.2-46.3); Lymphocytes # (A) 1.77 X 10*3/uL (0.90-5.00); Lymphocytes % (A) 35.8 %; MCH 28.5 pg (27.0-32.0); MCV 86.2 FL (80.0-97.0); Mean Platelet Volume 9.3 FL (9.5-12.2); Monocytes # (A) 0.47 X 10*3/uL (0.20-1.00); Monocytes % (A) 9.5 %; NRBC Per 100 WBC 0 X 10*3/uL (0.00-0.01); Neutrophils # (A) 2.54 X 10*3/uL (1.80-7.70); Neutrophils % (A) 51.5 %; Platelet Count 227 X 10*3/uL (140-440); RBC 4.92 X 10*6/uL (4.10-5.20); RDW 12.3 % (11.5-14.5); WBC 4.94 X 10*3/uL (4.50-10.00)
[2025-04-30 15:40] LABS: ALT 51 U/L (8-44); AST 40 U/L (13-35); Albumin 4.2 g/dL (3.8-4.9); Albumin/Globulin Ratio 2.62 Ratio (1.60-3.17); Alkaline Phosphatase 34 U/L (41-126); Blood Urea Nitrogen 9.3 mg/dL (9.0-27.0); Calcium 9.4 mg/dL (8.7-10.3); Carbon Dioxide 26.3 mmol/L (21.6-31.8); Chloride 104 mmol/L (96-109); Globulin 1.6 g/dL (1.6-3.3); Glucose 94 mg/dL (70-110); Potassium 4.7 mmol/L (3.5-5.5); Sodium 141 mmol/L (135-145); Total Bilirubin 0.4 mg/dL (0.3-1.2); Total Protein 5.8 g/dL (6.2-8.2)
== END | disposition home or self-care (01) ==
LOC: LABPAT 09:41
PROVIDERS: ATTEND Obstetrics & Gynecology
DX: Z01.812 Encounter for preprocedural laboratory examination (principal); N93.9 Abnormal uterine and vaginal bleeding, unspecified
CPT/HCPCS: 80053; 85025; 86850; 86900; 86901; 87086

== ENCOUNTER 2025-05-06 05:47 | Day surgery (SDC) | payer OTHER ==
[2025-05-06] MEDS: LACTATED RINGERS 1,000 ML IV ONE ×2 (06:35→08:28)
[2025-05-06] MEDS ORDERED: LIDOCAINE 1% (10MG/ML) FOR IV START INTRADERMA PRN (06:52)
[2025-05-06] MEDS: SCOPOLAMINE 1 MG/72 HR PATCH TRANSDERM ONE ×2 (06:58→11:11)
[2025-05-06] MEDS: DEXAMETHASONE SOD PHOSPHATE 4 MG/ML 1 ML VIAL IVP ONE (06:59)
[2025-05-06] MEDS ORDERED: fentaNYL (PF) 50 MCG/ML 2 ML AMP ONE (07:28)
[2025-05-06] MEDS ORDERED: GLYCOPYRROLATE 0.2 MG/ML 2 ML VIAL ONE (07:28)
[2025-05-06] MEDS ORDERED: ROCURONIUM 10 MG/ML (5 ML VIAL) IV ONE (07:28)
[2025-05-06] MEDS ORDERED: LIDOCAINE 1% INJ 10MG/ML (20 ML MDV) ONE (07:28)
[2025-05-06] MEDS ORDERED: NEOSTIGMINE 1 MG/ML 10 ML VIAL ONE (07:28)
[2025-05-06] MEDS ORDERED: MIDAZOLAM 2 MG/2 ML VIAL ONE (07:28)
[2025-05-06] MEDS ORDERED: KETOROLAC 15 MG/ML 1 ML VIAL ONE (07:28)
[2025-05-06] MEDS ORDERED: SUCCINYLCHOLINE CHLORIDE 200 MG/10 ML VIAL IV ONE (07:28)
[2025-05-06] MEDS ORDERED: PROPOFOL 10 MG/ML 20 ML VIAL IV ONE (07:28)
[2025-05-06] MEDS: ceFAZolin 2 GM in DEXTROSE 5% IN WATER 50 ML IVPB PRN (07:33)
[2025-05-06] MEDS: VASOPRESSIN 20 UNIT/ML 1 ML VIAL SQ ONE (08:01)
[2025-05-06] MEDS: ESTRADIOL 0.1 MG/GM VAGINAL CREAM 42.5 GM TUBE VAGINAL ONE (08:02)
[2025-05-06] MEDS: HYDROmorphone 0.5 MG/0.5 ML SYRINGE IVP PRN (09:07)
[2025-05-06] MEDS ORDERED: SIMETHICONE 80 MG CHEWABLE PO PRN (09:08)
--- NOTE | 2025-05-06 09:16 | P.OP ---
Date of Procedure: 05/06/25 Preoperative Diagnosis: 1. Abnormal uterine bleeding 2. Dysmenorrhea Postoperative Diagnosis: Same Procedure(s) Performed: Total Vaginal Hysterectomy Implants: None Anesthesia: WALLY Surgeon: Kia Matute Cardiac Nurse Practitioner #1: Genna Wilcox Estimated Blood Loss (ml): 150 Urine output (ml): 150 (clear yellow) Pathology: other (cervix, uterus) Condition: stable Disposition: floor Indications for Procedure: Ms. House is 24 year old with AUB and dysmenorrhea. She has tried multiple forms of contraception and TXA without any improvement in her symptoms. She presents for definitive management with Total Vaginal Hysterectomy. Risks, benefits, and alternatives to surgery are discussed including bleeding, infection, damage to surrounding structures including bladder/bowel/ureters, and post-operative VTE. The patient understands these risks and desire to proceed with surgery as discussed. Operative Findings: Bulky appearing uterus, fallopian tubes surgically absent. Ovaries normal- appearing. Description of Procedure: Prior to the beginning of the procedure the team paused to verify the patient's identity, as well as the procedure to be performed and the correct side/site. All equipment required was ready and available. The patient was positioned appropriately. Patient was cleaned and draped and legs were placed in lithotomy position using Jose stirrups. Kendrick catheter was placed to drain the bladder. A weighted speculum was placed in the posterior vaginal vault. The cervix was grasped with a double-tooth tenaculum. Vasopressin was injected circumstantially around the cervix. With downward traction, a circumferential incision was made along the vaginal mucosa overlying the reflection. This allowed dissection and entrance into the posterior cul-de-sac. An 0-Vicryl suture was placed to tag the posterior peritoneum. At this time, the uterosacral ligaments were visualized. These were clamped and ligated with 0-Vicryl suture. The uterosacral ligaments were held bilaterally. The cervicovesical space was then created by both blunt and sharp dissection allowing the cardinal ligaments to be visualized. These were clamped and ligated with 0-Vicryl suture as well. Once in the cervicovesical space the uterosacral-cardinal ligament complex was completely ligated with 0-Vicryl suture. The uterine arteries were clamped and ligated with 0-Vicryl suture. The gauri clamps were moved sequentially upward on the uterus until a small adnexal pedicle remained. The anterior cul-de-sac was now entered bluntly. The uterus was inverted and the pedicles were cut. The uterine specimen was delivered and sent for pathology. Bilateral fallopian tubes were grapsed, ligated with a ehcnlg-oc-scflb stitch, and cut. Bilateral uteroovarian ligaments were doubly ligated first with a transfixing 0-Vicryl suture and then reinforced with a free 0-Vicryl tie in the usual fashion. The large weighted speculum was removed and replaced with the small weighted speculum. A modified Rosas Culdoplasty was performed with the uterosacral ligaments held by pieces of 0- Vicryl. The vaginal cuff inferior and superior to the level of the Rosas Culd oplasty was closed with 0-Vicryl suture in a running fashion. After completion of the case, a kendrick catheter was inserted and noted to move freely into the urethra without tension. Clear urine was noted to drain from the catheter. Excellent hemostasis was noted at the end of the case. The vagina was packed with 1-inch iodoform packing coated in vaginal estrace cream. All instruments were removed from the patient. She was cleaned, dried, and awakened from anesthesia without difficulty. Sponge, lap, instrument, and needle counts were correct x2. She was taken to the PACU in stable condition.
[2025-05-06] MEDS: FAMOTIDINE 20 MG/2 ML VIAL IV STA (09:52)
[2025-05-06] MEDS: METOCLOPRAMIDE 5 MG/ML 2 ML VIAL IVP STA (09:52)
[2025-05-06] MEDS: fentaNYL (PF) 50 MCG/ML 2 ML AMP IVP PRN (10:15)
[2025-05-06] MEDS: LACTATED RINGERS 1,000 ML BAG IV STA (11:11)
[2025-05-06] MEDS: ONDANSETRON 4 MG/2 ML VIAL IVP ONE (11:11)
[2025-05-06] MEDS: DEXAMETHASONE SOD PHOSPHATE 4 MG/ML 1 ML VIAL IV ONE (11:11)
[2025-05-06] MEDS: LACTATED RINGERS 1,000 ML IV SCH (11:11)
[2025-05-06] MEDS: GABAPENTIN 300 MG CAP PO SCH (11:41)
[2025-05-06] MEDS: HYDROcodone/APAP 7.5-325MG 1 EACH TAB PO PRN (11:44)
[2025-05-06 13:18] VITALS: RESP 16
[2025-05-06] MEDS: KETOROLAC 15 MG/ML 1 ML VIAL IVP PRN (14:38)
[2025-05-06] MEDS: ACETAMINOPHEN TAB 500 MG TAB PO SCH (16:14)
[2025-05-06] MEDS: ONDANSETRON 4 MG/2 ML VIAL IVP PRN (16:15)
[2025-05-06] MEDS: HYDROmorphone 1 MG/ML 1 ML SYRINGE IVP STA (17:33)
[2025-05-07 09:30] VITALS: BP 112/72; PULSE 88; TEMP 98.2
[2025-05-07 10:01] LABS: Basophils # (A) 0.02 10*3/uL (0.00-0.10); Basophils % (A) 0.2 %; Eosinophils # (A) 0.01 10*3/uL (0.04-0.35); Eosinophils % (A) 0.1 %; HCT 35.6 % (37.2-46.3); Lymphocytes % (A) 20.5 %; MCH 28.4 pg (27.0-32.0); MCHC 33.7 g/dL (32.0-37.0); MCV 84.4 fL (80.0-97.0); Mean Platelet Volume 9.4 fL (9.5-12.2); Monocytes # (A) 0.87 10*3/uL (0.20-1.00); Monocytes % (A) 9.9 %; Neutrophils # (A) 6.03 10*3/uL (1.80-7.70); Neutrophils % (A) 68.8 %; Platelet Count 204 10*3/uL (140-440); RBC 4.22 10*6/uL (4.10-5.20); RDW 12.8 % (11.5-14.5); WBC 8.77 10*3/uL (4.50-10.00)
--- NOTE | 2025-05-10 21:06 | P.DS ---
Providers Date of admission: 05/06/2025 Expected date of discharge: 05/07/25 Attending physician: Kia Matute MD Primary care physician: Fransisca Garrido [facility] Course: Ms. House is a 24 year old POD#1 s/p Total Vaginal Hysterectomy for AUB and dysmenorrhea without complications. She desires discharge home today. This morning she is voiding spontaneously, has minimal vaginal spotting, eating and drinking without difficulty. Pain is moderately controlled, although she does have a history of chronic pain from fibromylagia and therefore requires a large dose of narcotics post-operatively. She denies chest pain, shortness of breath, pain/swelling in the legs. She will go home with a 3-day supply of [place]. She will use Motrin 800mg OTC. Post-operative restrictions are discussed with the patient including pelvic rest for 6 weeks and no lifting more than 15 pounds. She will follow up in the office in 6 weeks. All questions answered. Patient Condition at Discharge: Good Plan - Discharge Summary Discharge Rx Participant: No New Discharge Prescriptions: New Docusate [Colace] 100 mg PO BID PRN #60 capsule PRN Reason: Constipation Docusate [Colace] 100 mg PO BID PRN #60 capsule PRN Reason: Constipation oxyCODONE HCL [oxyCODONE HCL (IR)] 10 mg PO Q6H PRN 3 Days #12 tab PRN Reason: Breakthrough Pain No Action Ibuprofen [Motrin] 800 mg PO Q8H PRN PRN Reason: Pain Cholecalciferol (Vitamin D3) [Vitamin D3 (1250 Mcg = 50,000 Iu)] 1,250 mcg PO MO Gabapentin 600 mg PO TID HYDROcodone/APAP 7.5-325MG [[place] 7.5-325] 1 tab PO TID rOPINIRole HCL [Requip] 0.5 mg PO HS Discharge Medication List Cholecalciferol (Vitamin D3) [Vitamin D3 (1250 Mcg = 50,000 Iu)] 1,250 mcg PO MO 01/23/24 [History] Ibuprofen [Motrin] 800 mg PO Q8H PRN 01/23/24 [History] Gabapentin 600 mg PO TID 05/05/25 [History] HYDROcodone/APAP 7.5-325MG [[place] 7.5-325] 1 tab PO TID 05/05/25 [History] rOPINIRole HCL [Requip] 0.5 mg PO HS 05/05/25 [History] Docusate [Colace] 100 mg PO BID PRN #60 capsule 05/07/25 [Rx] Docusate [Colace] 100 mg PO BID PRN #60 capsule 05/07/25 [Rx] oxyCODONE HCL [oxyCODONE HCL (IR)] 10 mg PO Q6H PRN 3 Days #12 tab 05/07/25 [Rx] Follow up Appointment(s)/Referral(s): Kia Matute MD [STAFF PHYSICIAN] - 6 Weeks Patient Instructions/Handouts: Vaginal Hysterectomy (DC) Discharge Disposition: HOME SELF-CARE
== END 2025-05-07 13:22 | disposition home or self-care (01) ==
LOC: OR 05:47 → 4FBP 09:03 → OR 05-07 13:22
PROVIDERS: ATTEND Obstetrics & Gynecology
DX: N94.6 Dysmenorrhea, unspecified (principal)
CPT/HCPCS: 81025; 85025; 88307; 58260; J1100; J2765; J0690; J2405; J3010; J1171 ×2; J1885; J1308